=== PATIENT | female | born 1960 | race Caucasian/White ===

== ENCOUNTER → 2017-02-24 | Outpatient (CLI) | payer BC | LOC: MC.RAD 07:40 | DX: Z12.31 Encounter for screening mammogram for malignant neoplasm of breast (principal) ==

== ENCOUNTER → 2018-03-16 | Outpatient (CLI) | payer BC | LOC: MC.RAD 07:20 | DX: Z12.31 Encounter for screening mammogram for malignant neoplasm of breast (principal) ==

== ENCOUNTER 2018-08-19 08:53 | Emergency (ER) | payer BC ==
[~2018-08-19] VITALS: Ht 165.1 cm; Wt 52.3 kg
[2018-08-19 08:58] VITALS: BP 91/53
[2018-08-19 11:05] VITALS: PULSE 63; TEMP 98
== END 2018-08-19 11:06 | disposition home or self-care (01) ==
LOC: COL.ER 08:53
DX: S61.216A Laceration without foreign body of right little finger without damage to nail, initial encounter (principal); W23.0XXA Caught, crushed, jammed, or pinched between moving objects, initial encounter; Z23 Encounter for immunization

== ENCOUNTER → 2019-03-18 | Outpatient (CLI) | payer BC | LOC: MC.RAD 07:43 | DX: Z12.31 Encounter for screening mammogram for malignant neoplasm of breast (principal) ==

== ENCOUNTER → 2020-03-27 | Outpatient (CLI) | payer BC | LOC: MC.RAD 12:24 | DX: Z12.31 Encounter for screening mammogram for malignant neoplasm of breast (principal) ==

== ENCOUNTER → 2021-03-30 | Outpatient (CLI) | payer BC | LOC: MC.RAD 07:40 | DX: Z12.31 Encounter for screening mammogram for malignant neoplasm of breast (principal) ==

== ENCOUNTER 2022-08-30 04:37 | Emergency (ER) | payer BC ==
[~2022-08-30] VITALS: Ht 165.1 cm; Wt 52.7 kg
[2022-08-30 04:44] VITALS: TEMP 98.3
[2022-08-30 05:02] LABS: BASO % 0.4 % (0.0-2.0); EOS % 0.1 % (0.0-4.0); GRAN # 7.4 K/mm3 (1.4-6.5); GRAN % 79.8 % (42.2-75.2); HEMOGLOBIN 11.4 g/dl (12.5-16.0); LYMPH # 1.2 K/mm3 (1.2-3.4); LYMPH % 12.8 % (20.0-51.0); MEAN CELL VOLUME 93 fl (80.0-100.0); MEAN CORPUSCULAR HEMOGLOBIN 31 pg (27-31); MEAN CORPUSCULAR HGB CONC 33 g/dl (33.0-37.0); MEAN PLATELET VOLUME 9.8 fl (7.4-10.4); MONO # 0.6 K/mm3 (0.1-0.6); MONO % 6.6 % (1.7-9.3); PLATELET COUNT 234 K/mm3 (130-400); RED BLOOD COUNT 3.73 M/mm3 (4.10-5.30); REDCELL DISTRIBUTION WIDTH-CV 12.2 % (11.5-14.5)
[2022-08-30 05:06] LABS: HEMATOCRIT 34.5 % (37.0-47.0)
[2022-08-30 05:07] LABS: INR 1.1 (0.8-3.0); PROTHROMBIN TIME 12.4 SECONDS (9.7-12.8)
[2022-08-30 05:28] LABS: BILIRUBIN,TOTAL 0.6 mg/dL (0.2-1.2); CALCIUM 9.4 mg/dL (8.4-10.2); CREATININE, serum 0.79 mg/dL (0.57-1.11); POTASSIUM 3.7 mmol/L (3.5-4.5); TOTAL PROTEIN 7.7 gm/dL (6.2-8.1)
[2022-08-30 07:46] VITALS: BP 117/70; PULSE 79
== END 2022-08-30 08:00 | disposition short-term general hospital (02) ==
LOC: COL.ER 04:37
PROVIDERS: Personal Emergency Response Attendant
DX: R22.0 Localized swelling, mass and lump, head (principal)
CPT/HCPCS: J1100

== ENCOUNTER 2022-09-11 13:02 | Inpatient (IN) | payer BC ==
[~2022-09-11] VITALS: Ht 165.1 cm; Wt 48.6 kg
[2022-09-11 14:04] LABS: BASO % 0.1 % (0.0-2.0); GRAN # 14.1 K/mm3 (1.4-6.5); GRAN % 89.7 % (42.2-75.2); HEMOGLOBIN 12.5 g/dl (12.5-16.0); LYMPH # 0.9 K/mm3 (1.2-3.4); LYMPH % 5.7 % (20.0-51.0); MEAN CELL VOLUME 90 fl (80.0-100.0); MEAN CORPUSCULAR HEMOGLOBIN 31 pg (27-31); MEAN CORPUSCULAR HGB CONC 34 g/dl (33.0-37.0); MEAN PLATELET VOLUME 10.4 fl (7.4-10.4); MONO # 0.7 K/mm3 (0.1-0.6); MONO % 4.1 % (1.7-9.3); PLATELET COUNT 263 K/mm3 (130-400); RED BLOOD COUNT 4.08 M/mm3 (4.10-5.30); REDCELL DISTRIBUTION WIDTH-CV 12.9 % (11.5-14.5)
[2022-09-11 14:08] LABS: HEMATOCRIT 36.5 % (37.0-47.0)
[2022-09-11 14:23] LABS: ALBUMIN 3.7 gm/dL (3.4-4.8); BILIRUBIN,TOTAL 0.9 mg/dL (0.2-1.2); CREATININE, serum 0.83 mg/dL (0.57-1.11); POTASSIUM 4.2 mmol/L (3.5-4.5); TOTAL PROTEIN 7.1 gm/dL (6.2-8.1)
[2022-09-11 14:55] LABS: INR 1.1 (0.8-3.0); PROTHROMBIN TIME 12.9 SECONDS (9.7-12.8)
[2022-09-11 14:58] LABS: PARTIAL THROMBOPLASTIN TIME 23.4 SECONDS (26.0-37.0)
--- NOTE | 2022-09-11 17:50 | NUR ---
REPORT RCVD FROM ED. THE PATIENT CAME UP FROM ED WITH SISTER AT BEDSIDE. THE PATIENT IS NON-VERBAL, WILL OPEN EYES AND LOOK AT RN, HOWEVER DOES NOT RESPOND. THE PATIENTS SISTER HAS REQUESTED A CUELLAR, WILL CALL [employer] AND BENEFITS COORDINATOR PROVIDER FOR CUELLAR REQUEST.
[2022-09-11 18:11] VITALS: BP 140/53; PULSE 48
[2022-09-12 00:10] VITALS: BP 116/66; PULSE 50; TEMP 97.7
[2022-09-12] MEDS ORDERED: ATIVAN 1MG T1 MG/TAB PO (00:54)
[2022-09-12] MEDS ORDERED: KEPPRA 500MG500 MG PO (00:55)
[2022-09-12] MEDS ORDERED: PEPCID 20MG TAB20 MG PO (00:56)
[2022-09-12] MEDS ORDERED: AMBIEN 5MG TABLE5 MG PO (00:59)
[2022-09-12 01:43] LABS: COLLECTION METHOD CLEAN CATCH
[2022-09-12 01:50] LABS: MUCOUS Present (NOT PRESENT); SQUAMOUS EPITHELIAL None Seen /hpf (0-10); URINE BACTERIA Rare /hpf (NONE SEEN); URINE RBC 0-2 /hpf (0-2)
[2022-09-12 01:51] LABS: URINE APPEARANCE Clear (CLEAR/HAZY); URINE BLOOD Negative (NEGATIVE); URINE COLOR Yellow (YELLOW); URINE GLUCOSE Negative (NEGATIVE); URINE KETONE 1+ (NEGATIVE); URINE NITRATE Negative (NEGATIVE); URINE PROTEIN(semi-quant) Negative (NEGATIVE); URINE UROBILINOGEN 0.2 E.U/dL (0.2-1.0)
[2022-09-12 04:55] VITALS: BP 117/62; PULSE 57; TEMP 98.3
[2022-09-12 06:39] LABS: BASO % 0.1 % (0.0-2.0); GRAN # 11.4 K/mm3 (1.4-6.5); GRAN % 89.5 % (42.2-75.2); HEMOGLOBIN 11.7 g/dl (12.5-16.0); LYMPH # 0.8 K/mm3 (1.2-3.4); LYMPH % 6.4 % (20.0-51.0); MEAN CELL VOLUME 93 fl (80.0-100.0); MEAN CORPUSCULAR HEMOGLOBIN 31 pg (27-31); MEAN CORPUSCULAR HGB CONC 33 g/dl (33.0-37.0); MONO # 0.4 K/mm3 (0.1-0.6); MONO % 3.5 % (1.7-9.3); PLATELET COUNT 197 K/mm3 (130-400); RED BLOOD COUNT 3.84 M/mm3 (4.10-5.30)
[2022-09-12 06:45] LABS: HEMATOCRIT 35.7 % (37.0-47.0)
--- NOTE | 2022-09-12 06:48 | NUR ---
THE PATIENT HAD AN UNEVENTFUL NIGHT. AROUND MIDNIGHT THE PATIENT BECAME ALERT HOWEVER, REMAINED NON-VERBAL. WAS ABLE TO NOD HEAD, BUT UNABLE TO SAY WHAT SHE WANTS/NEEDS. THE PATIENT DID PULL HER IVS OUT, SO NEW IV STARTED IN THE LEFT FOREARM.
[2022-09-12 07:16] LABS: CALCIUM 8.6 mg/dL (8.4-10.2); CREATININE, serum 0.69 mg/dL (0.57-1.11); MAGNESIUM 2.1 mg/dL (1.6-2.6); POTASSIUM 4.3 mmol/L (3.5-4.5)
[2022-09-12 07:46] VITALS: BP 142/68; PULSE 54; TEMP 98.6
--- NOTE | 2022-09-12 08:56 | NUR ---
Pt assessment complete. Pt laying in bed upon entry. She is alert but does not respond to my questions. She does attempt to squeeze my hands, L<R. Ofe in her room states patient shook her head yes when asked if she was hungry. Pt does not respond to me when asking if she is hungry or in pain. Ritu DD. Dressing placed to coccyx. POC discussed with family who verbalizes understanding. No needs at this time. Call light within reach.
--- NOTE | 2022-09-12 10:35 | NUR ---
Attended rounds with hospitalist, CM, and SW with family at bedside. Family feels patient has responded well to steroids so would like to continue treatment plans at this time. Provided contact information and discussed my support role at this time.
--- NOTE | 2022-09-12 10:43 | NUR ---
Ginger: No congregation preference Situation: reshipping clerk stopped by room on rounds Background: Pt was resting and content Assessment: Pt has no needs right now and appreciated the visit Recommendation: reshipping clerk will follow up as needed
[2022-09-12 12:15] VITALS: BP 141/65; PULSE 60; TEMP 97.7
[2022-09-12 16:04] VITALS: BP 138/67; PULSE 85; TEMP 98.6
--- NOTE | 2022-09-12 18:25 | NUR ---
Pt quite restless through the day. Tylenol administered in case of pain, family does not feel she is in pain. Ativan administered for restlessness/agitation per family request. Pt continued to not be able to express needs or answer questions. Fidgety and grabbing hold of things, gown, sin etc. Sin DD. Fall precautions in place.
[2022-09-12 19:51] VITALS: BP 149/56; PULSE 83; TEMP 97.8
--- NOTE | 2022-09-12 20:15 | NUR ---
AT 1950; GISELA LUCAS FROM [facility] WAS ASSISTING WITH VITAL SIGNS, SHAYY CALLED THIS RN TO INFORM ME OF A 70% SATURATION, AT THIS TIME, SHAYY WAS PERFORMING A JAW THRUST TO MAINTAIN THE AIRWAY. IT WAS AT THIS TIME, THIS RN CALLED [place] ANTHONY WHO IMMEDIATELY ASKED TO CALL THE FAMILY TO RETURN. THE PATIENT'S , JOSE E ANSWERED HIS PHONE AND WE INFORMED HIM THAT HIS WAS HAVING DIFFICULTY MAINTAINING HER AIRWAY AND THAT HE SHOULD RETURN TO HER ROOM QUICKLY AND SOON POSSIBLE. JOSE E CONTACTED KAI, WHO IS THE PATIENT'S SISTER TO LET HER KNOW TO COME SOON SHE CAN. THE PATIENT'S RETURNED TO THE ROOM AND SAT WITH THE PATIENT UNTIL OTHER FAMILY ARRIVED. THIS RN ASKED IF THEY NEEDED ANYTHING, AND THEY DENIED NEEDS AT THIS TIME.
--- NOTE | 2022-09-12 20:55 | NUR ---
DURING VITALS, IT WAS NOTED THAT THE PATIENT WAS SATURATING 70%, WE PULLED HER JAW FORWARD THE PATIENT WAS UNABLE TO PROTECT HER AIRWAY. RESPIRATORY CALLED, THIS RN PLACED THE PATIENT ON 15L OXYMASK. CALL TO CAROLA ANTHONY WHO CAME TO THE ROOM IMMEDIATELY. THIS RN CONTACTED THE PATIENT'S WHO HAD JUST LEFT THE ROOM. THE PATIENT'S SISTER AND THE PATIENT'S RETURNED TO THE ROOM WELL THEIR FAMILY FRIENDS. CAROLA ANTHONY DISCUSSED KEEPING THE PATIENT COMFORTABLE, WE WILL BE GIVING COMFORT CARE MEDICATIONS PER FAMILY'S REQUEST.
--- NOTE | 2022-09-13 01:06 | NUR ---
Contacted [facility], spoke to Matti. Patient not a candidate for donation due to BMI. CON Referral #[id number] [facility] will call back, as patient may still be a candidate for eye donation.
--- NOTE | 2022-09-13 01:28 | NUR ---
Received call from [facility], patient is not a candidate for donation.
--- NOTE | 2022-09-13 01:30 | NUR ---
AFTER MEDICATION ADMINISTRATION, IT WAS EVIDENT THAT THE PATIENTS JUGULAR VEIN THAT HAD BEEN DISTENDED HAD FLATTENED. AT THAT TIME, THIS RN ASSESSED BY LISTENING TO THE PATIENT'S HEART SOUNDS. THERE WAS MINIMAL SOUND, DURING THE FULL MINUTE THAT THIS RN LISTENED, THERE WAS 2 BEATS, THEN NOTHING. THE PATIENT HAD NO HEART SOUNDS, AND NO LUNG SOUNDS. CONTACTED GISELA ALY TO COME VERIFY THAT THE PATIENT HAD . GISELA ALY ARRIVED TO THE ROOM AND IT WAS VERIFIED AT 0038 THE PATIENT HAD . CALLED CAROLA ANTHONY WHO CAME TO BEDSIDE TO CONSOLE THE FAMILY. CARD HAND CONTACTED AT 0050. WILL ESCORT THE FAMILY TO THE WAITING ROOM TO PROVIDE POST MORTEM CARE. SHAMIKA GALARZA AND THIS RN PROVIDED POST MORTEM CARE. FAMILY BACK INTO THE ROOM AT 0115. WILL ALLOW THE FAMILY MUCH TIME THEY NEED. FAMILY DID CHOOSE [facility], AND THE POINT OF CONTACT IS JOSE E MORRIS.
== END 2022-09-13 00:38 | disposition expired | DRG 54 ==
LOC: COL.ER 13:02 → MEDICAL 15:09
PROVIDERS: Emergency Medicine; Nurse Practitioner Family; ADMIT Internal Medicine
DX: C71.9 Malignant neoplasm of brain, unspecified (principal); E43 Unspecified severe protein-calorie malnutrition; G93.6 Cerebral edema; J96.01 Acute respiratory failure with hypoxia; Z51.5 Encounter for palliative care; Z66 Do not resuscitate; Z68.1 Body mass index [BMI] 19.9 or less, adult; F10.90 Alcohol use, unspecified, uncomplicated; Z20.822 Contact with and (suspected) exposure to COVID-19; G13.1 Other systemic atrophy primarily affecting central nervous system in neoplastic disease
CPT/HCPCS: C9113; J1100; J1815; J1953; J2060; J2270; J7030